=== PATIENT | female | born 1955 | race Caucasian/White ===

== ENCOUNTER 2018-01-23 18:24 | Observation (INO) | payer OTHER, MEDICAID ==
[2018-01-23 19:28] LABS: ADD MAN DIFF? NO
[2018-01-23] MEDS: ASPIRIN 81 MG TAB PO (19:30)
[2018-01-23 19:33] LABS: BASOPHILS % 0.2 % (0.0-2.0); EOSINOPHILS # 0.2 10^3/ul (0.0-0.5); EOSINOPHILS % 2.5 % (0.0-7.0); HEMATOCRIT 33.3 % (37.0-47.0); LYMPHOCYTES # 2.6 10^3/ul (0.8-2.9); LYMPHOCYTES % 30.2 % (15.0-51.0); MEAN CORPUSCULAR HEMOGLOBIN 30.1 pg (29.0-33.0); MEAN CORPUSCULAR VOLUME 91.2 fl (82.0-101.0); MEAN PLATELET VOLUME 10.4 fl (7.4-10.4); MONOCYTE # 0.6 10^3/ul (0.3-0.9); MONOCYTES % 6.8 % (0.0-11.0); NEUTROPHIL # 5.2 10^3/ul (1.6-7.5); PLATELET COUNT 282 10^3/UL (140-415); RED BLOOD COUNT 3.65 10^6/ul (4.20-5.40); RED CELL DISTRIBUTION WIDTH 12.9 % (11.5-14.5)
[2018-01-23 19:33] LABS: WHITE BLOOD COUNT 8.7 10^3/ul (4.8-10.8)
[2018-01-23 19:49] LABS: ALANINE AMINOTRANSFERASE 20 IU/L (13-69); ALBUMIN 4.5 g/dl (3.3-4.9); ALBUMIN/GLOBULIN RATIO 1.55; ALKALINE PHOSPHATASE 98 IU/L (42-121); ANION GAP 12 (5-13); ASPARTATE AMINO TRANSFERASE 22 IU/L (15-46); BILIRUBIN,INDIRECT 0.2 mg/dl (0-1.1); BILIRUBIN,TOTAL 0.2 mg/dl (0.2-1.3); BLOOD UREA NITROGEN 23 mg/dl (7-20); CALCIUM 9.7 mg/dl (8.4-10.2); CARBON DIOXIDE 30 mmol/L (21-31); CHLORIDE 99 mmol/L (97-110); CREATININE 0.87 mg/dl (0.44-1.00); Estimated GFR > 60 mL/min (>60); GLUCOSE 154 mg/dl (70-220); LIPASE 178 U/L (23-300); POTASSIUM 4.1 mmol/L (3.5-5.1); SODIUM 141 mmol/L (135-144); TOTAL PROTEIN 7.4 g/dl (6.1-8.1)
[2018-01-23 20:01] LABS: TROPONIN-I < 0.012 ng/ml (0.000-0.120)
[2018-01-23] MEDS ORDERED: DOCUSATE SODIUM 100 MG CAP PO (20:30)
[2018-01-23] MEDS ORDERED: NACL 0.9% 3 ML SYG IV (20:30)
[2018-01-23] MEDS ORDERED: NITROGLYCERIN (SL) 0.4 MG TAB SL (20:30)
[2018-01-23] MEDS ORDERED: morphine 2 MG INJ IV (20:30)
[2018-01-23] MEDS ORDERED: BISACODYL (EC) 5 MG TAB PO (20:30)
[2018-01-23] MEDS: INSULIN ASPART [NOVOLOG] 3 ML PEN SC (21:00)
[2018-01-23] MEDS ORDERED: GLUCOSE GEL 15 GRAM TUBE BUCCAL (21:00)
[2018-01-23] MEDS ORDERED: DEXTROSE 50% 50 ML SYRINGE IV ×2 (21:00)
[2018-01-23] MEDS ORDERED: GLUCOSE GEL 15 GRAM TUBE PO ×2 (21:00)
[2018-01-23] MEDS ORDERED: GLUCAGON 1 MG INJ IM (21:00)
[2018-01-23] MEDS: RANITIDINE 150 MG TAB PO (21:58)
[2018-01-23] MEDS: ATORVASTATIN 80 MG TAB PO (21:58)
[2018-01-24] MEDS: SOD CHLORIDE 0.9% 1,000 ML IV
[2018-01-24] MEDS: INSULIN ASPART [NOVOLOG] 3 ML PEN SC ×4 (01:00→13:00)
[2018-01-24] MEDS: ACCU-CHEK XX (01:22)
[2018-01-24 01:38] LABS: CREATINE KINASE 37 IU/L (23-200)
[2018-01-24 01:50] LABS: CK INDEX 0.9; CK-MB 0.32 ng/ml (0.0-2.4); TROPONIN-I < 0.012 ng/ml (0.000-0.120)
[2018-01-24 05:25] LABS: ADD MAN DIFF? NO
[2018-01-24 05:36] LABS: BASOPHILS % 0.4 % (0.0-2.0); EOSINOPHILS # 0.2 10^3/ul (0.0-0.5); EOSINOPHILS % 2.9 % (0.0-7.0); HEMATOCRIT 31.7 % (37.0-47.0); HEMOGLOBIN 10.3 g/dl (12.0-16.0); LYMPHOCYTES # 2.5 10^3/ul (0.8-2.9); LYMPHOCYTES % 35.4 % (15.0-51.0); MEAN CORPUSCULAR HEMOGLOBIN 29.9 pg (29.0-33.0); MEAN CORPUSCULAR HGB CONC 32.5 g/dl (32.0-37.0); MEAN CORPUSCULAR VOLUME 92.2 fl (82.0-101.0); MEAN PLATELET VOLUME 10.3 fl (7.4-10.4); MONOCYTE # 0.5 10^3/ul (0.3-0.9); MONOCYTES % 6.6 % (0.0-11.0); NEUTROPHIL # 3.9 10^3/ul (1.6-7.5); NEUTROPHILS % 54.1 % (39.0-77.0); PLATELET COUNT 252 10^3/UL (140-415); RED BLOOD COUNT 3.44 10^6/ul (4.20-5.40)
[2018-01-24 05:36] LABS: WHITE BLOOD COUNT 7.2 10^3/ul (4.8-10.8)
[2018-01-24 05:46] LABS: HEMOGLOBIN A1C 6.6 % (0-5.9)
[2018-01-24 05:52] LABS: CREATINE KINASE 34 IU/L (23-200)
[2018-01-24 05:55] LABS: ALANINE AMINOTRANSFERASE 24 IU/L (13-69); ALBUMIN/GLOBULIN RATIO 1.53; ALKALINE PHOSPHATASE 94 IU/L (42-121); ANION GAP 9 (5-13); ASPARTATE AMINO TRANSFERASE 19 IU/L (15-46); BILIRUBIN,INDIRECT 0.2 mg/dl (0-1.1); BILIRUBIN,TOTAL 0.2 mg/dl (0.2-1.3); BLOOD UREA NITROGEN 21 mg/dl (7-20); CALCIUM 9.5 mg/dl (8.4-10.2); CARBON DIOXIDE 29 mmol/L (21-31); CHLORIDE 102 mmol/L (97-110); CHOL/HDL RATIO 2.4 RATIO; CHOLESTEROL 134 mg/dl (100-200); CREATININE 0.81 mg/dl (0.44-1.00); Estimated GFR > 60 mL/min (>60); GLUCOSE 120 mg/dl (70-220); HDL CHOLESTEROL 54 mg/dl (35-98); LDL CHOLESTEROL,CALCULATED 56 mg/dl; MAGNESIUM 1.8 mg/dl (1.7-2.5); POTASSIUM 3.9 mmol/L (3.5-5.1); SODIUM 140 mmol/L (135-144); TOTAL PROTEIN 6.6 g/dl (6.1-8.1); TRIGLYCERIDES 119 mg/dl (0-149)
[2018-01-24 06:03] LABS: CK INDEX 0.7; CK-MB 0.24 ng/ml (0.0-2.4); TROPONIN-I < 0.012 ng/ml (0.000-0.120)
[2018-01-24] MEDS: LEVOTHYROXINE 125 MCG TAB PO (06:27)
[2018-01-24] MEDS: HYDROCHLOROTHIAZIDE 25 MG TAB PO ×2 (08:45→08:51)
[2018-01-24] MEDS: BENAZEPRIL 20 MG TAB PO (08:46)
[2018-01-24] MEDS: CLOPIDOGREL 75 MG TAB PO (08:46)
[2018-01-24] MEDS: FLUOXETINE 20 MG CAP PO (08:47)
[2018-01-24] MEDS: ATENOLOL 25 MG TAB PO (08:48)
[2018-01-24] MEDS: ACETAMINOPHEN 325 MG TAB PO (09:21)
== END 2018-01-24 14:55 | disposition home or self-care (01) ==
LOC: E/R 18:24 → 6WM 20:25
DX: R07.9 Chest pain, unspecified (principal); I69.331 Monoplegia of upper limb following cerebral infarction affecting right dominant side; E11.9 Type 2 diabetes mellitus without complications; E03.9 Hypothyroidism, unspecified; F41.9 Anxiety disorder, unspecified; M25.572 Pain in left ankle and joints of left foot
CPT/HCPCS: 36415; 71045; 73610; 80053; 80061; 82550; 82553; 82962; 83036; 83690; 83735; 84443; 84484; 85025; 93306; 99285-25; G0378